=== PATIENT | female | born 1975 | race Caucasian/White ===

== ENCOUNTER 2022-02-18 16:17 | Emergency (ER) | payer BC, OTHER ==
[~2022-02-18] VITALS: Ht 154.9 cm; Wt 72.6 kg
[2022-02-18] MEDS ORDERED: ULTRAM50 MG PO (17:24)
== END 2022-02-18 17:37 | disposition home or self-care (01) ==
LOC: FSED 16:49
DX: S93.692A Other sprain of left foot, initial encounter (principal); X50.1XXA Overexertion from prolonged static or awkward postures, initial encounter; Y93.01 Activity, walking, marching and hiking; Y92.89 Other specified places as the place of occurrence of the external cause
CPT/HCPCS: 99283